=== PATIENT | female | born 1955 | race Caucasian/White ===

== ENCOUNTER 2022-01-03 10:20 | Observation (INO) ==
[2022-01-03] MEDS ORDERED: Aspirin 325 MG TABLET PO ONE (11:14)
[2022-01-03] MEDS ORDERED: Ondansetron 4 MG/2 ML VIAL IVP PRN (12:15)
[2022-01-03] MEDS ORDERED: MOM Conc 10 ML UD.LIQ PO PRN (12:15)
[2022-01-03] MEDS ORDERED: Mag Hydrox/Al Hydrox/Simeth 30 ML UDC PO PRN (12:15)
[2022-01-03] MEDS ORDERED: Melatonin 3 MG TABLET PO PRN (12:15)
[2022-01-03] MEDS ORDERED: Naloxone 0.4 MG/ML INJ IVP PRN (12:15)
[2022-01-03] MEDS ORDERED: Acetaminophen 325 MG TABLET PO PRN (12:15)
[2022-01-03] MEDS ORDERED: Magnesium Oxide 400 MG TABLET PO ONE (21:16)
[2022-01-04 06:05] LABS: Hematocrit 40.5 % (35.3-44.9); Hemoglobin 13.7 g/dL (11.5-15.4); Mean Corpuscular HGB Conc 33.8 g/dL (31.6-35.5); Mean Corpuscular Volume 88.8 fL (83.0-100.0); Mean Platelet Volume 9.4 fL (9.4-12.4); Platelet Count 191 K/mcL (140-400); Red Blood Count 4.56 M/mcL (3.82-4.97); Red Cell Distribution Width 11.9 % (11.5-14.5)
[2022-01-04 06:11] LABS: Estimated Average Glucose 117 mg/dl; Hemoglobin A1C 5.7 %
[2022-01-04 06:27] LABS: Calcium 9.5 mg/dL (8.6-10.3); Chol/HDL Ratio 2.7 (0-4.9); Magnesium 2.1 mg/dL (1.6-2.6)
[2022-01-04 06:29] LABS: Potassium 4.2 mEq/L (3.5-5.1)
[2022-01-04] MEDS ORDERED: *HR* Enoxaparin 40 MG/0.4 ML SYRINGE SQ SCH (07:00)
[2022-01-04 07:51] VITALS: BP 129/87; PULSE 79; TEMP 97.9; O2SAT 95
[2022-01-04] MEDS ORDERED: Aspirin Enteric Coated 81 MG Tablet PO SCH (09:00)
== END 2022-01-04 15:00 | disposition home or self-care (01) ==
LOC: EMEROOARM 10:20 → 3BNU 10:20 → SUATTDRO 11:51 → 3BNU 13:26
PROVIDERS: ADMIT Internal Medicine; ATTEND Registered Nurse